=== PATIENT | female | born 1945 | race Caucasian/White ===

== ENCOUNTER 2019-03-14 08:27 | Day surgery (SDC) | payer OTHER | END 2019-03-14 12:00 | disposition home or self-care (01) | LOC: JASU-SURG 08:27 ==

== ENCOUNTER 2019-06-13 06:35 | Day surgery (SDC) | payer OTHER ==
[2019-06-12 11:12] VITALS: BMI 24.6
[2019-06-13] MEDS ORDERED: CHONDROITIN SU A/HYALUR SOD 1 KIT ONE (07:13)
[2019-06-13] MEDS ORDERED: CYCLOPENTOLATE HCL 1% OPHTH SOLN 2 ML BOTTLE ONE (07:24)
[2019-06-13] MEDS ORDERED: OFLOXACIN 0.3% OPHTHALMIC SOLUTION 5 ML BOTTLE ONE (07:24)
[2019-06-13] MEDS ORDERED: PHENYLEPHRINE 2.5% OPHTH SOLN 15 ML BOTTLE ONE (07:24)
[2019-06-13] MEDS ORDERED: TROPICAMIDE 1% OPHTH SOLN 15 ML BOTTLE ONE (07:24)
[2019-06-13] MEDS ORDERED: KETOROLAC TROMETHAMINE 0.5% EYE DROP 1 DROP DROPS ONE (07:25)
[2019-06-13] MEDS: CYCLOPENTOLATE HCL 1% OPHTH SOLN 2 ML BOTTLE OP SCH ×3 (08:00→08:20)
[2019-06-13] MEDS: KETOROLAC TROMETHAMINE 0.5% EYE DROP 1 DROP DROPS OP SCH ×3 (08:00→08:20)
[2019-06-13] MEDS: PHENYLEPHRINE 2.5% OPHTH SOLN 15 ML BOTTLE OP SCH ×3 (08:00→08:20)
[2019-06-13] MEDS: OFLOXACIN 0.3% OPHTHALMIC SOLUTION 5 ML BOTTLE OP SCH ×3 (08:00→08:20)
[2019-06-13] MEDS: TROPICAMIDE 1% OPHTH SOLN 15 ML BOTTLE OP SCH ×3 (08:00→08:20)
[2019-06-13] MEDS ORDERED: MIDAZOLAM HCL 2 MG/2 ML SINGLE DOSE VIAL ONE (08:05)
[2019-06-13] MEDS ORDERED: ACETAMINOPHEN 325 MG TABLET (FP) PO PRN (08:44)
[2019-06-13] MEDS ORDERED: TETRACAINE 0.5% OPHTH SOLN 2 ML BOTTLE OD ONE (09:00)
[2019-06-13] MEDS ORDERED: POVIDONE-IODINE 5% OPHTHALMIC PREP 30 ML SOLUTION OD ONE (09:05)
[2019-06-13] MEDS ORDERED: LIDOCAINE HCL 1% PRESERVATIVE FREE - 30ML VIAL IO ONE (09:11)
[2019-06-13] MEDS ORDERED: MANNITOL 25% 12.5 GM/50 ML VIAL IVPB ONE (09:12)
[2019-06-13] MEDS ORDERED: CHONDROITIN SU A/HYALUR SOD 1 KIT IO ONE (09:12)
[2019-06-13] MEDS ORDERED: ACETYLCHOLINE 1:100 INTRA-OCUL 20 MG/2 ML KIT IO ONE (09:24)
[2019-06-13] MEDS ORDERED: PILOCARPINE 2% OPHTHALMIC SOLUTION 15 ML BOTTLE ONE (09:29)
[2019-06-13] MEDS ORDERED: TETRACAINE 0.5% OPHTH SOLN 2 ML BOTTLE ONE (09:36)
[2019-06-13] MEDS ORDERED: ACETYLCHOLINE 1:100 INTRA-OCUL 20 MG/2 ML KIT ONE (09:36)
[2019-06-13] MEDS ORDERED: EPINEPHrine/PF 1 MG/1 ML (1:1,000) AMPULE ONE (09:36)
[2019-06-13 09:53] VITALS: TEMP 97.5
[2019-06-13] MEDS ORDERED: acetaZOLAMIDE 250 MG TABLET PO ONE ×2 (10:00)
[2019-06-13] MEDS ORDERED: acetaZOLAMIDE 250 MG TABLET ONE (10:00)
[2019-06-13 10:19] VITALS: BP 135/73; PULSE 75
--- NOTE | 2019-06-14 06:48 | OP ---
DATE OF OPERATION: DATE OF DICTATION: 06/13/2019 PREOPERATIVE DIAGNOSES: 1. Cataract, right eye. 2. Narrow angle glaucoma, status post laser peripheral iridotomy. 3. Fuchs endothelial dystrophy. POSTOPERATIVE DIAGNOSES: 1. Cataract, right eye. 2. Narrow angle glaucoma, status post laser peripheral iridotomy. 3. Fuchs endothelial dystrophy. OPERATION: Aborted cataract extraction, right eye. SURGEON: Jennifer Pan M.D. PROCEDURE: The patient was brought to the operating room and correctly identified along with the operative site, as well as correct intraocular lens power. She was then prepped and draped in the usual sterile fashion, including 5% Betadine solution in the conjunctival sac and an eyelid drape. An eyelid speculum was then placed into the right eye. A paracentesis port was created, and lidocaine 0.5 mL was given intracamerally. Viscoat was then placed into the anterior chamber, but there was immediate egress of Viscoat noted through paracentesis. With palpation of the cornea with the Viscoat cannula, the pressure was noted to be very high. The patient denied pain but had noted that the vision wass more blurred. Some of the viscoelastic was manually irrigated and aspirated from the eye through the superior paracentesis with a cannula, and this seemed to relieve the pressure. Mannitol 12.5 was given intravenously, and the eye was observed for approximately 15 minutes. Provisc was then placed into the eye to attempt to deepen the anterior chamber; however, again, egress of viscoelastic was noted through the superior paracentesis and the pressure was noted to increase. The viscoelastic was then irrigated and aspirated from the eye through the superior paracentesis, as thoroughly as possible. The eye was then noted to be softer. the red reflex was note to be intact during the entire surgery. The decision was made at this point to cancel the surgery, given the narrow angle attack. Miochol was given intracamerally to shrink the pupil. The eye was once again palpated and noted to be softer. The superior paracentesis was noted to be water tight, there was no sign of iris prolapse to the parcentesis. Topical vancomycin given, the eye patched and shielded, and the patient discharged from the operating room in stable condition , without any pain. JENNIFER PAN M.D. [id number] MTDD
== END 2019-06-13 10:25 | disposition home or self-care (01) ==
LOC: JASU-SURG 06:35
PROVIDERS: ATTEND Ophthalmology
PROC: 08RJ3JZ Replacement of Right Lens with Synthetic Substitute, Percutaneous Approach (ICD-10-PCS; principal; 2019-06-13 09:11)
DX: H26.9 Unspecified cataract (principal); H40.20X0 Unspecified primary angle-closure glaucoma, stage unspecified; H18.51 Endothelial corneal dystrophy; Z53.8 Procedure and treatment not carried out for other reasons; I10 Essential (primary) hypertension